=== PATIENT | female | born 1940 | race Hispanic/Latino ===

== ENCOUNTER 2021-07-02 05:32 | Inpatient (IN) | payer OTHER, MEDICARE ==
[2021-07-02] VITALS (35 sets, daily range): BP systolic 81–148; BP diastolic 38–97
[~2021-07-02] VITALS: Ht 152.4 cm; Wt 59.0 kg
[2021-07-02] MEDS ORDERED: NITROGLYCERIN 50MG/D5W 250ML 1 BOT ONE (06:27)
[2021-07-02] MEDS ORDERED: VENL75CA97 PO (07:11)
[2021-07-02] MEDS ORDERED: ROSU40 PO (07:11)
[2021-07-02] MEDS ORDERED: METO-409 PO (07:11)
[2021-07-02] MEDS ORDERED: LOSA100T2 PO (07:11)
[2021-07-02] MEDS ORDERED: TICAGRELOR 90 MG TABLET PO SCH (08:00)
[2021-07-02 08:07] LABS: ABG BASE EXCESS -2.2 mmol/L (-2.0-3.0); ABG OXYGEN SATURATION 99.1 % (95.0-99.0); ABG PCO2 41 mmHg (32-45)
[2021-07-02 08:08] LABS: BASOPHILS % (AUTO) 0.2 % (0.0-5.0); EOSINOPHILS % (AUTO) 0.3 % (0.0-8.0); HEMATOCRIT 41.8 % (36-48); LYMPHOCYTES % (AUTO) 8.5 % (21.0-51.0); MEAN CORPUSCULAR HEMOGLOBIN 28.5 pg (27.0-33.0); MEAN CORPUSCULAR HGB CONC 31.8 g/dL (32.0-36.0); MEAN CORPUSCULAR VOLUME 89.5 fL (79-99); MONOCYTES % (AUTO) 5.9 % (3.0-13.0); NEUTROPHILS % (AUTO) 84.7 % (40.0-77.0); PLATELET COUNT (AUTO) 175 K/uL (130-400); RED BLOOD CELL COUNT(AUTO) 4.67 MIL/uL (4.00-5.50); RED CELL DISTRIBUTION WIDTH 14.5 % (11.0-15.5); WHITE BLOOD COUNT (AUTO) 11.3 K/uL (4.8-10.8)
[2021-07-02] MEDS ORDERED: LIDOCAINE HCL 1% 20 ML VIAL ONE (08:10)
[2021-07-02] MEDS ORDERED: HEPARIN 10,000 UNIT/10ML (1,000 UNIT/ML) VIAL ONE (08:10)
[2021-07-02] MEDS ORDERED: BIVALIRUDIN 250 MG/VIAL IV ONE (08:10)
[2021-07-02] MEDS ORDERED: NITROGLYCERIN 50MG VIAL ONE (08:10)
[2021-07-02] MEDS ORDERED: MIDAZOLAM HCL 1 MG/ML 2ML VIAL ONE (08:11)
[2021-07-02] MEDS ORDERED: FENTANYL CITRATE PF 50 MCG/1 ML 2ML VIAL ONE (08:11)
[2021-07-02 08:21] LABS: CREATININE 0.9 mg/dL (0.5-1.5); POTASSIUM 3.9 mmol/L (3.5-5.1)
[2021-07-02 08:25] LABS: ALBUMIN 3.7 g/dL (3.5-5.0); BILIRUBIN,TOTAL 0.6 mg/dL (0.2-1.0); MAGNESIUM 1.9 mg/dL (1.80-2.40); PHOSPHORUS 3.1 mg/dL (2.5-4.9); TOTAL PROTEIN, SERUM 7.4 g/dL (6.0-8.3)
[2021-07-02 08:45] LABS: INR 0.97 (0.85-1.15); PROTHROMBIN TIME 10.6 SEC (9.6-11.6)
[2021-07-02 08:47] LABS: PARTIAL THROMBOPLASTIN TIME 29.7 SEC (26.3-35.5)
[2021-07-02] MEDS ORDERED: SACUBITRIL/VALSARTAN 1 EACH TABLET PO SCH (09:00)
[2021-07-02 09:12] LABS: B-TYPE NATRIURETIC PEPTIDE 293 pg/mL (0-100)
[2021-07-02] MEDS: CARVEDILOL 6.25 MG TABLET PO SCH ×2 (09:44→19:53)
[2021-07-02] MEDS: FUROSEMIDE 40MG VIAL IV SCH ×2 (09:45→19:54)
[2021-07-02] MEDS: ACETAMINOPHEN 325 MG TAB PO PRN (10:37)
[2021-07-02] MEDS ORDERED: MAGNESIUM 2GM PREMIX 50ML 50 ML IV PRN (11:00)
[2021-07-02] MEDS ORDERED: CLON0.5T23 PO (11:59)
[2021-07-02] MEDS ORDERED: ENOXAPARIN SODIUM 60 MG/0.6 ML SQ ONE (16:00)
[2021-07-02] MEDS: TICAGRELOR 90 MG TABLET PO SCH (19:53)
[2021-07-02] MEDS: FAMOTIDINE 20MG TAB PO SCH (19:53)
[2021-07-02] MEDS: CLONAZEPAM 0.5 MG TABLET PO SCH (19:54)
[2021-07-03] VITALS (29 sets, daily range): BP systolic 82–142; BP diastolic 29–77
[2021-07-03 03:58] LABS: HEMATOCRIT 38.4 % (36-48); MEAN CORPUSCULAR HEMOGLOBIN 29.3 pg (27.0-33.0); MEAN CORPUSCULAR HGB CONC 33.3 g/dL (32.0-36.0); MEAN CORPUSCULAR VOLUME 87.9 fL (79-99); RED BLOOD CELL COUNT(AUTO) 4.37 MIL/uL (4.00-5.50); RED CELL DISTRIBUTION WIDTH 14.6 % (11.0-15.5); WHITE BLOOD COUNT (AUTO) 11.5 K/uL (4.8-10.8)
[2021-07-03 04:10] LABS: CREATININE 1.2 mg/dL (0.5-1.5); POTASSIUM 3.4 mmol/L (3.5-5.1); TOTAL PROTEIN, SERUM 6.2 g/dL (6.0-8.3)
[2021-07-03] MEDS: KCL 20 MEQ ERTAB PO PRN ×2 (06:29→08:30)
[2021-07-03] MEDS: TICAGRELOR 90 MG TABLET PO SCH ×2 (08:31→21:18)
[2021-07-03] MEDS: FAMOTIDINE 20MG TAB PO SCH ×2 (08:31→21:17)
[2021-07-03] MEDS: CARVEDILOL 6.25 MG TABLET PO SCH ×2 (08:31→21:20)
[2021-07-03] MEDS: FUROSEMIDE 40MG VIAL IV SCH ×2 (08:32→21:17)
[2021-07-03] MEDS: CLONAZEPAM 0.5 MG TABLET PO SCH (21:17)
[2021-07-04 04:11] LABS: BASOPHILS % (AUTO) 0.2 % (0.0-5.0); EOSINOPHILS % (AUTO) 1.9 % (0.0-8.0); HEMATOCRIT 38.1 % (36-48); LYMPHOCYTES % (AUTO) 11.4 % (21.0-51.0); MEAN CORPUSCULAR HEMOGLOBIN 29.7 pg (27.0-33.0); MEAN CORPUSCULAR HGB CONC 33.6 g/dL (32.0-36.0); MEAN CORPUSCULAR VOLUME 88.4 fL (79-99); MONOCYTES % (AUTO) 12.3 % (3.0-13.0); NEUTROPHILS % (AUTO) 73.9 % (40.0-77.0); PLATELET COUNT (AUTO) 178 K/uL (130-400); RED BLOOD CELL COUNT(AUTO) 4.31 MIL/uL (4.00-5.50); RED CELL DISTRIBUTION WIDTH 14.6 % (11.0-15.5)
[2021-07-04 04:28] VITALS: BP 113/52
[2021-07-04 04:28] LABS: CREATININE 1.1 mg/dL (0.5-1.5); POTASSIUM 3.2 mmol/L (3.5-5.1)
[2021-07-04 04:49] LABS: B-TYPE NATRIURETIC PEPTIDE 592 pg/mL (0-100)
[2021-07-04] MEDS: KCL 20 MEQ ERTAB PO PRN ×3 (04:53→08:54)
[2021-07-04 08:00] VITALS: BP 140/65
[2021-07-04] MEDS: FUROSEMIDE 40MG VIAL IV SCH (08:17)
[2021-07-04] MEDS: FAMOTIDINE 20MG TAB PO SCH ×2 (08:17→21:07)
[2021-07-04] MEDS: CARVEDILOL 6.25 MG TABLET PO SCH ×2 (08:17→21:08)
[2021-07-04] MEDS: TICAGRELOR 90 MG TABLET PO SCH ×2 (08:17→21:07)
[2021-07-04] MEDS: ACETAMINOPHEN 325 MG TAB PO PRN (09:58)
[2021-07-04] MEDS ORDERED: BENZONATATE 100 MG CAPSULE PO PRN (11:30)
[2021-07-04] MEDS ORDERED: KCL 20 MEQ ERTAB PO PRN (11:30)
[2021-07-04] MEDS ORDERED: POTASSIUM CHLORIDE 10% ELIXIR 20 MEQ/15 ML UDCUP PO PRN (11:30)
[2021-07-04] MEDS ORDERED: LIDOCAINE HCL-MPF 1% 2ML VIAL IV PRN (11:30)
[2021-07-04] MEDS ORDERED: POTASSIUM CHLORIDE 20MEQ/100ML 100 ML IV PRN (11:30)
[2021-07-04 12:21] VITALS: BP 133/63
[2021-07-04 16:00] VITALS: BP 140/74
[2021-07-04 20:13] VITALS: BP 138/65
[2021-07-04] MEDS: CLONAZEPAM 0.5 MG TABLET PO SCH (21:07)
[2021-07-04 23:51] VITALS: BP 102/44
[2021-07-05 04:46] VITALS: BP 124/63
[2021-07-05 06:07] LABS: CREATININE 1.1 mg/dL (0.5-1.5); POTASSIUM 4.6 mmol/L (3.5-5.1)
[2021-07-05 08:00] VITALS: BP 129/69
[2021-07-05] MEDS: FAMOTIDINE 20MG TAB PO SCH ×2 (08:21→20:15)
[2021-07-05] MEDS: TICAGRELOR 90 MG TABLET PO SCH (08:21)
[2021-07-05] MEDS: CARVEDILOL 6.25 MG TABLET PO SCH ×2 (08:24→20:16)
[2021-07-05] MEDS ORDERED: FUROSEMIDE 40 MG TABLET PO SCH (09:00)
[2021-07-05] MEDS: ASPIRIN 81 MG EC TAB PO SCH (10:27)
[2021-07-05] MEDS: SACUBITRIL/VALSARTAN 1 EACH TABLET PO SCH (10:27)
[2021-07-05] MEDS: CLOPIDOGREL 75MG TAB PO SCH (10:28)
[2021-07-05] MEDS: ACETAMINOPHEN 325 MG TAB PO PRN (11:16)
[2021-07-05 12:28] VITALS: BP 121/55
[2021-07-05 16:00] VITALS: BP 135/69
[2021-07-05 19:42] VITALS: BP 157/62
[2021-07-05] MEDS: CLONAZEPAM 0.5 MG TABLET PO SCH (20:15)
[2021-07-05 23:15] VITALS: BP 140/61
[2021-07-06 03:40] VITALS: BP 122/50
[2021-07-06 08:09] VITALS: BP 131/57
[2021-07-06] MEDS: SACUBITRIL/VALSARTAN 1 EACH TABLET PO SCH ×3 (08:45→20:43)
[2021-07-06] MEDS: CLOPIDOGREL 75MG TAB PO SCH (08:45)
[2021-07-06] MEDS: ASPIRIN 81 MG EC TAB PO SCH (08:45)
[2021-07-06] MEDS: FAMOTIDINE 20MG TAB PO SCH ×2 (08:45→20:42)
[2021-07-06] MEDS: CARVEDILOL 6.25 MG TABLET PO SCH ×2 (08:48→20:42)
[2021-07-06] MEDS: FUROSEMIDE 20 MG TABLET PO SCH (08:49)
[2021-07-06] MEDS ORDERED: FURO20TA6 PO (09:59)
[2021-07-06] MEDS ORDERED: AEC81 PO (09:59)
[2021-07-06] MEDS ORDERED: CLOP75TA14 PO (09:59)
[2021-07-06] MEDS ORDERED: CARV6.2579 PO (09:59)
[2021-07-06] MEDS ORDERED: SACU1TAB PO (09:59)
[2021-07-06 11:40] VITALS: BP 121/60
[2021-07-06 16:06] VITALS: BP 111/60
[2021-07-06 19:29] VITALS: BP 119/51
[2021-07-06] MEDS: CLONAZEPAM 0.5 MG TABLET PO SCH (20:42)
[2021-07-06 23:15] VITALS: BP 119/48
[2021-07-07 03:46] VITALS: BP 108/51
[2021-07-07 07:00] VITALS: BP 122/62
[2021-07-07] MEDS: CARVEDILOL 6.25 MG TABLET PO SCH (08:44)
[2021-07-07] MEDS: FUROSEMIDE 20 MG TABLET PO SCH (08:44)
[2021-07-07] MEDS: SACUBITRIL/VALSARTAN 1 EACH TABLET PO SCH (08:44)
[2021-07-07] MEDS: FAMOTIDINE 20MG TAB PO SCH (08:44)
[2021-07-07] MEDS: CLOPIDOGREL 75MG TAB PO SCH (08:45)
[2021-07-07] MEDS: ASPIRIN 81 MG EC TAB PO SCH (08:45)
[2021-07-07 11:00] VITALS: BP 99/55
[2021-07-07 15:00] VITALS: BP 113/64
== END 2021-07-07 17:43 | DRG 280 ==
LOC: 2CH 05:32 → 2DH 07-03 14:33
PROVIDERS: ADMIT Hospitalist; ATTEND Hospitalist
PROC: 4A023N7 Measurement of Cardiac Sampling and Pressure, Left Heart, Percutaneous Approach (ICD-10-PCS; principal; 2021-07-02)
PROC: B211YZZ Fluoroscopy of Multiple Coronary Arteries using Other Contrast (ICD-10-PCS; 2021-07-02)
PROC: B215YZZ Fluoroscopy of Left Heart using Other Contrast (ICD-10-PCS; 2021-07-02)
DX: I21.4 Non-ST elevation (NSTEMI) myocardial infarction (principal); I50.41 Acute combined systolic (congestive) and diastolic (congestive) heart failure; E78.5 Hyperlipidemia, unspecified; I34.0 Nonrheumatic mitral (valve) insufficiency; J44.9 Chronic obstructive pulmonary disease, unspecified; F32.A Depression, unspecified; J02.9 Acute pharyngitis, unspecified; I11.0 Hypertensive heart disease with heart failure; I25.2 Old myocardial infarction; Z79.899 Other long term (current) drug therapy; Z85.3 Personal history of malignant neoplasm of breast; Z90.12 Acquired absence of left breast and nipple
CPT/HCPCS: 36415; 36600; 71045; 80048; 80053; 82803; 82948; 83605; 83735; 83880; 84100; 84484; 85025; 85027; 85610; 85730; 87880; 93005; 93306; 93356; 93458; 97039; C1894; G0378; J0583; J1644; J1650; J1940; J2250; J3010; J3475; J3490

== ENCOUNTER → 2021-10-27 | Outpatient (CLI) | payer OTHER, MEDICARE ==
[~2021-10-27] MED LIST: AEC81 PO; CARV6.2579 PO; CLON0.5T23 PO; CLOP75TA14 PO; FURO20TA6 PO; LOSA100T2 PO; METO-409 PO; ROSU40 PO; SACU1TAB PO; VENL75CA97 PO
== END | disposition home or self-care (01) ==
LOC: SHCH 10:51
PROVIDERS: ATTEND Internal Medicine Cardiovascular Disease
DX: I42.0 Dilated cardiomyopathy (principal)
CPT/HCPCS: 93306